=== PATIENT | male | born 1935 | race Caucasian/White ===

== ENCOUNTER 2018-06-17 09:34 | Outpatient (CLI) | payer MEDICARE, OTHER ==
[2018-06-17 12:56] LABS: ALBUMIN/GLOBULIN RATIO 1.5 (1.0-2.2); ALKALINE PHOSPHATASE 64 IU/L (42-121); ALT ALANINE AMINOTRANSFERASE 19 IU/L (10-60); AST ASPARTATE AMINOTRANSFERASE 19 IU/L (10-42); BILIRUBIN,TOTAL 0.5 mg/dL (0.2-1.0); BUN - BLOOD UREA NITROGEN 15 mg/dL (6-20); CALCIUM 9.4 mg/dL (8.5-10.3); CARBON DIOXIDE - CO2 28 mmol/L (21-32); CHLORIDE 103 mmol/L (101-111); CHOL/HDL RATIO 2.4 (<5.0); CHOLESTEROL 155 mg/dL; CREATININE 0.9 mg/dL (0.6-1.2); GFR - MDRD 80 (>89); GLUCOSE 119 mg/dL (70-100); HDL CHOLESTEROL 64 mg/dL; LDL CHOLESTEROL,CALCULATED 81 mg/dL; LDL/HDL RATIO 1.3 (<3.6); SODIUM 141 mmol/L (135-145); TOTAL PROTEIN 6.6 g/dL (6.7-8.2); VLDL CHOLESTEROL 10 mg/dL
[2018-06-17 13:07] LABS: BASOPHILS % (AUTO) 0.5 %; EOSINOPHILS # (AUTO) 0.3 10^3/uL (0.0-0.7); EOSINOPHILS % (AUTO) 7.5 %; LYMPHOCYTES # (AUTO) 1.3 10^3/uL (1.5-3.5); LYMPHOCYTES % (AUTO) 31.3 %; MEAN CORPUSCULAR HEMOGLOBIN 33.4 pg (27.0-31.0); MEAN CORPUSCULAR HGB CONC 34.5 g/dL (32.0-36.0); MEAN CORPUSCULAR VOLUME 96.7 fL (80.0-94.0); MEAN PLATELET VOLUME 7.7 fL (7.4-11.4); MONOCYTES # (AUTO) 0.2 10^3/uL (0.0-1.0); MONOCYTES % (AUTO) 5.7 %; NEUTROPHILS # (AUTO) 2.3 10^3/uL (1.5-6.6); PLT - PLATELET COUNT 188 10^3/uL (130-450); RED BLOOD COUNT 3.89 10^6/uL (4.70-6.10); RED CELL DISTRIBUTION WIDTH 14.9 % (12.0-15.0); WHITE BLOOD COUNT 4.2 x10^3/uL (4.8-10.8)
[2018-06-17 13:09] LABS: HB2 TOTAL 13.5 g/dL; HEMOGLOBIN A1C 0.57 g/dL
== END 2018-06-17 09:35 ==
LOC: LAB.WCP 09:34
PROVIDERS: ATTEND Physician Assistant Medical
DX: E78.5 Hyperlipidemia, unspecified (principal); R73.9 Hyperglycemia, unspecified; N40.1 Benign prostatic hyperplasia with lower urinary tract symptoms; J30.9 Allergic rhinitis, unspecified
CPT/HCPCS: 36415; 80053; 80061; 83036; 83721; 84153; 85025

== ENCOUNTER 2018-07-07 16:54 | Outpatient (CLI) | payer MEDICARE, OTHER ==
--- NOTE | 2018-07-08 09:41 | Ultrasound Report ---
Reason: CAROTID ARTERY STENOSIS Procedure Date: 07/07/2018 Accession Number: [id number] / [id number] Procedure: US - Carotid Doppler Complete CPT Code: FULL RESULT: EXAM: BILATERAL CAROTID AND VERTEBRAL ARTERY DUPLEX DOPPLER ULTRASOUND: EXAM DATE: 07/07/2018 05:01 PM CLINICAL HISTORY: Carotid artery stenosis. COMPARISON: None. TECHNIQUE: Grayscale imaging, color Doppler, and duplex spectral Doppler were used to evaluate the carotid and vertebral arteries bilaterally. Static images were obtained. FINDINGS: There is no significant elevation of the velocities or ratios. Mild atherosclerotic plaque formation is seen involving bilateral carotid bulbs. Normal antegrade flow is present in bilateral vertebral arteries. VELOCITIES (cm/sec): RIGHT CCA mid: PSV 73.94 cm/sec CCA dist: PSV 81.22 cm/sec ICA prox: PSV 61.06 cm/sec, EDV 17.36 cm/sec ICA mid: PSV 77.86 cm/sec, EDV 24.65 cm/sec ICA dist: PSV 64.16 cm/sec, EDV 22.97 cm/sec ECA: PSV 78.42 cm/sec Vert: PSV 40.70 cm/sec ICA/CCA: 0.96 LEFT CCA mid: PSV 75.98 cm/sec CCA dist: PSV 64.17 cm/sec ICA prox: PSV 53.39 cm/sec, EDV 13.35 cm/sec ICA mid: PSV 56.47 cm/sec, EDV 16.94 cm/sec ICA dist: PSV 65.71 cm/sec, EDV 16.94 cm/sec ECA: PSV 78.55 cm/sec Vert: PSV 27.17 cm/sec ICA/CCA: 1.02 ICA diameter stenosis: Right: <50% by velocity and <70% by NASCET criteria. Left: <50% by velocity and <70% by NASCET criteria. IMPRESSION: 1. Mild bilateral carotid artery plaquing. 2. In the right carotid artery there are no elevated carotid artery velocities to suggest hemodynamically significant stenosis. 3. In the left carotid artery there are no elevated carotid artery velocities to suggest hemodynamically significant stenosis. 4. Normal antegrade flow is present in bilateral vertebral arteries. General Recommendations: Stenosis =50% ICA - Follow-up ultrasound 6-12 months Stenosis <50% ICA - High Risk Patient with plaque - Follow-up ultrasound 1-2 years Normal Study but High Risk Patient - Follow-up ultrasound 3-5 years Management recommendations and diagnostic criteria are based on current IAC endorsed standards in Carotid Artery Stenosis: Grayscale and Doppler Ultrasound Diagnosis. Validated velocity measurements with angiographic measurements and velocity criteria are extrapolated from diameter data as defined by the Society of Radiologists in Ultrasound Consensus Conference Radiology 2003; 229;340-346. RADIA
== END 2018-07-07 16:55 | disposition home or self-care (01) ==
LOC: DI 16:54
PROVIDERS: ATTEND Physician Assistant Medical
DX: I65.29 Occlusion and stenosis of unspecified carotid artery (principal)
CPT/HCPCS: 93880

== ENCOUNTER 2018-07-21 10:19 | Outpatient (CLI) | payer MEDICARE, OTHER ==
[2018-07-21 12:53] LABS: BASOPHILS % (AUTO) 0.6 %; EOSINOPHILS # (AUTO) 0.3 10^3/uL (0.0-0.7); EOSINOPHILS % (AUTO) 8.2 %; LYMPHOCYTES # (AUTO) 1.4 10^3/uL (1.5-3.5); LYMPHOCYTES % (AUTO) 35.6 %; MEAN CORPUSCULAR HEMOGLOBIN 33.4 pg (27.0-31.0); MEAN CORPUSCULAR HGB CONC 34.2 g/dL (32.0-36.0); MEAN CORPUSCULAR VOLUME 97.5 fL (80.0-94.0); MEAN PLATELET VOLUME 7.7 fL (7.4-11.4); MONOCYTES # (AUTO) 0.2 10^3/uL (0.0-1.0); MONOCYTES % (AUTO) 5.8 %; NEUTROPHILS % (AUTO) 49.8 %; PLT - PLATELET COUNT 197 10^3/uL (130-450); RED BLOOD COUNT 4.18 10^6/uL (4.70-6.10); RED CELL DISTRIBUTION WIDTH 15.3 % (12.0-15.0)
[2018-07-21 13:39] LABS: FERRITIN 143.8 ng/mL (23.9-336.2)
[2018-07-21 13:42] LABS: FOLATE 13.51 ng/mL (5.90 - >24.8)
[2018-07-21 14:27] LABS: % IRON SATURATION 35 % (20-50); IRON 93 ug/dL (45-182); TOTAL IRON BINDING CAPACITY 266 ug/dL (250-450); TRANSFERRIN 190 mg/dL (180-329)
== END 2018-07-21 10:20 | disposition home or self-care (01) ==
LOC: LAB.WCP 10:19
PROVIDERS: ATTEND Physician Assistant Medical
DX: D64.9 Anemia, unspecified (principal)
CPT/HCPCS: 36415; 82607; 82728; 82746; 83540; 84466; 85025

== ENCOUNTER 2018-09-27 08:00 | Outpatient (CLI) | payer MEDICARE, OTHER ==
[2018-09-27 19:18] LABS: BASOPHILS % (AUTO) 0.5 %; EOSINOPHILS # (AUTO) 0.4 10^3/uL (0.0-0.7); EOSINOPHILS % (AUTO) 7.8 %; HGB - HEMOGLOBIN 13.2 g/dL (14.0-18.0); LYMPHOCYTES # (AUTO) 1.5 10^3/uL (1.5-3.5); LYMPHOCYTES % (AUTO) 31.8 %; MEAN CORPUSCULAR HEMOGLOBIN 32.8 pg (27.0-31.0); MEAN CORPUSCULAR VOLUME 99.4 fL (80.0-94.0); MEAN PLATELET VOLUME 7.7 fL (7.4-11.4); MONOCYTES # (AUTO) 0.3 10^3/uL (0.0-1.0); MONOCYTES % (AUTO) 6.6 %; NEUTROPHILS # (AUTO) 2.5 10^3/uL (1.5-6.6); NEUTROPHILS % (AUTO) 53.3 %; PLT - PLATELET COUNT 182 10^3/uL (130-450); RED BLOOD COUNT 4.01 10^6/uL (4.70-6.10); WHITE BLOOD COUNT 4.7 x10^3/uL (4.8-10.8)
== END 2018-09-27 23:59 | disposition home or self-care (01) ==
LOC: LAB.WCP 08:00
PROVIDERS: ATTEND Physician Assistant Medical
DX: D51.9 Vitamin B12 deficiency anemia, unspecified (principal)
CPT/HCPCS: 36415; 82607; 85025

== ENCOUNTER 2018-10-21 22:34 | Outpatient (CLI) | payer MEDICARE, OTHER ==
--- NOTE | 2018-10-22 00:38 | Ultrasound Report ---
Reason: TESTICULAR PAIN,LEFT Procedure Date: 10/21/2018 Accession Number: [id number] / [id number] Procedure: US - Testicle w/Doppler CPT Code: FULL RESULT: EXAM: SCROTAL ULTRASOUND EXAM DATE: 10/21/2018 11:59 PM. CLINICAL HISTORY: Testicular pain, left. COMPARISON: None. TECHNIQUE: Real-time scanning was performed with static images obtained. Color-flow images were utilized. FINDINGS: Right: Testis: 3.3 x 3.1 x 2.3 cm. Normal size and echotexture. No mass, calcification, or abnormal blood flow. Epididymis: Normal size and echotexture. No solid-appearing mass or abnormal blood flow. Hydrocele: None. Varicocele: None. Left: Testis: 3.3 x 2.7 x 3.7 cm. Quite hyperemic and heterogeneous. There is a small region posteriorly with avascularity which could be a very small early abscess. Doubt testicular mass. Epididymis: Normal size and echotexture. No solid-appearing mass or abnormal blood flow. Hydrocele: Moderate reactive. Varicocele: None. Other: None. IMPRESSION: Hyperemic and heterogeneous left testicle, concerning for orchitis. There is a small region posteriorly which could be a very early intratesticular abscess. No drainable collection seen. Moderate reactive hydrocele. RADIA The above findings were discussed with Hazel Short by Dr. Felipe Armas at 12:40 AM on 10/22/2018.
== END 2018-10-21 22:35 | disposition home or self-care (01) ==
LOC: DI 22:34
PROVIDERS: ATTEND Physician Assistant Medical
DX: N50.812 Left testicular pain (principal); N43.3 Hydrocele, unspecified
CPT/HCPCS: 76870; 93975

== ENCOUNTER 2018-10-28 17:33 | Outpatient (CLI) | payer MEDICARE, OTHER ==
--- NOTE | 2018-10-28 20:15 | Ultrasound Report ---
Reason: TESTICULAR PAIN Procedure Date: 10/28/2018 Accession Number: [id number] / [id number] Procedure: US - Testicle w/Doppler CPT Code: FULL RESULT: EXAM: SCROTAL ULTRASOUND EXAM DATE: 10/28/2018 06:30 PM. CLINICAL HISTORY: TESTICULAR PAIN. Follow-up orchitis. 5 days of antibiotics with increased swelling. COMPARISON: TESTICLE W/DOPPLER 10/21/2018 11:31 PM. TECHNIQUE: Real-time scanning was performed with static images obtained. Color-flow images were utilized. FINDINGS: Right: Testis: 3.7 x 2.3 x 2.4 cm. Blood flow appears within normal limits. Mildly heterogeneous echotexture. Mild microlithiasis. Epididymis: 1.2 x 1.1 x 1.1 cm. Normal size and echotexture. No mass or abnormal blood flow. Hydrocele: Small hydrocele. Varicocele: None. Left: Testis: 4.3 x 3.4 x 3.3 cm. Persistent acute left orchitis. Very heterogeneous enlarged hypervascular left testicle is seen diffusely. The heterogeneity of the left testicle appears mild to worse compared to the prior. The amount of hypervascularity appears similar to the prior. There is a moderate left hydrocele which appears simple and this was present on the prior. Epididymis: 1.1 x 0.9 x 1.1 cm. Multiple tiny epididymal cysts Hydrocele: Moderate left hydrocele. Varicocele: Prominent left spermatic cord, varicocele could be present. IMPRESSION: 1. Persistent acute left orchitis. Very heterogeneous enlarged hypervascular left testicle is seen diffusely. The heterogeneity of the left testicle appears mild to worse compared to the prior. The amount of hypervascularity appears similar to the prior. Follow-up of this heterogeneous left testicle is recommended to ensure resolution and exclude a mass. There is a moderate left hydrocele which appears simple and this was present on the prior. 2. Small right hydrocele. Mild right testicle microlithiasis. 3. See above. RADIA The call report notification system was initiated by Dr. Mirella Oneil at 07:28 PM on 10/28/2018. We were unable to reach anyone at the time this report was signed. ADDENDUM: 10/28/18 20:43 Dr. Short was informed of these findings on 10/28/2018 at 20:43 hrs.
== END 2018-10-28 17:34 | disposition home or self-care (01) ==
LOC: DI 17:33
PROVIDERS: ATTEND Physician Assistant Medical
DX: N45.2 Orchitis (principal); N43.3 Hydrocele, unspecified; N50.89 Other specified disorders of the male genital organs
CPT/HCPCS: 76870; 93975

== ENCOUNTER 2019-07-01 13:26 | Outpatient (CLI) | payer MEDICARE, OTHER ==
--- NOTE | 2019-07-03 08:44 | Ultrasound Report ---
Reason: CAROTID ARTERY STENOSIS Procedure Date: 07/01/2019 Accession Number: [id number] / [id number] Procedure: US - Carotid Doppler Complete CPT Code: FULL RESULT: EXAM: BILATERAL CAROTID AND VERTEBRAL ARTERY DUPLEX DOPPLER ULTRASOUND: EXAM DATE: 07/01/2019 01:48 PM CLINICAL HISTORY: Carotid artery stenosis. COMPARISON: CAROTID DOPPLER COMPLETE 07/07/2018 5:01 PM. TECHNIQUE: Grayscale imaging, color Doppler, and duplex spectral Doppler were used to evaluate the carotid and vertebral arteries bilaterally. Static images were obtained. FINDINGS: Mild carotid bulb plaquing bilaterally, similar to prior. Normal antegrade flow is present in bilateral vertebral arteries. VELOCITIES (cm/sec): Right CCA mid: PSV 82 cm/sec CCA dist: PSV 73 cm/sec ICA prox: PSV 53 cm/sec, EDV 11 cm/sec ICA mid: PSV 76 cm/sec, EDV 18 cm/sec ICA dist: PSV 66 cm/sec, EDV 20 cm/sec ECA: PSV 80 cm/sec Vert: PSV 45 cm/sec ICA/CCA: 0.92 Left CCA mid: PSV 68 cm/sec CCA dist: PSV 62 cm/sec ICA prox: PSV 48 cm/sec, EDV 12 cm/sec ICA mid: PSV 58 cm/sec, EDV 16 cm/sec ICA dist: PSV 56 cm/sec, EDV 14 cm/sec ECA: PSV 74 cm/sec Vert: PSV 49 cm/sec ICA/CCA: 0.85 ICA diameter stenosis: Right: <50% by velocity and <70% by NASCET criteria. Left: <50% by velocity and <70% by NASCET criteria. IMPRESSION: 1. Mild bilateral carotid artery plaquing. 2. In the right carotid artery there are no elevated carotid artery velocities to suggest hemodynamically significant stenosis. 3. In the left carotid artery there are no elevated carotid artery velocities to suggest hemodynamically significant stenosis. 4. Normal antegrade flow is present in bilateral vertebral arteries. General Recommendations: Stenosis =50% ICA - Follow-up ultrasound 6-12 months Stenosis <50% ICA - High Risk Patient with plaque - Follow-up ultrasound 1-2 years Normal Study but High Risk Patient - Follow-up ultrasound 3-5 years Management recommendations and diagnostic criteria are based on current IAC endorsed standards in Carotid Artery Stenosis: Grayscale and Doppler Ultrasound Diagnosis. Validated velocity measurements with angiographic measurements and velocity criteria are extrapolated from diameter data as defined by the Society of Radiologists in Ultrasound Consensus Conference Radiology 2003; 229;340-346. RADIA
== END 2019-07-01 13:27 | disposition home or self-care (01) ==
LOC: DI 13:26
PROVIDERS: ATTEND Physician Assistant Medical
DX: I65.29 Occlusion and stenosis of unspecified carotid artery (principal)
CPT/HCPCS: 93880

== ENCOUNTER 2019-07-07 04:37 | Emergency (ER) | payer MEDICARE, OTHER ==
[2019-07-07] MEDS ORDERED: KETOROLAC 30 MG/ML VIAL IVP STA (05:01)
[2019-07-07] MEDS ORDERED: SODIUM CHLORIDE 0.9% 1,000 ML IV ONE (05:01)
[2019-07-07] MEDS ORDERED: ONDANSETRON 4 MG/2 ML VIAL IVP STA (05:01)
[2019-07-07 05:02] LABS: BILIRUBIN,URINE NEGATIVE (NEGATIVE); GLUCOSE, URINE (UA) NEGATIVE (NEGATIVE); KETONES,URINE (UA) NEGATIVE (NEGATIVE); LEUKOCYTE ESTERASE, URINE NEGATIVE (NEGATIVE); NITRITE,URINE NEGATIVE (NEGATIVE); OCCULT BLOOD,URINE TRACE-LYSE (NEGATIVE); PROTEIN,URINE 30 mg/dL (NEGATIVE); UROBILINOGEN,URINE 0.2 (NORMAL) E.U./dL (NORMAL)
[2019-07-07 05:03] LABS: CLARITY,URINE CLEAR (CLEAR)
--- NOTE | 2019-07-07 05:04 | ED Physician Documentation ---
History of Present Illness - Stated complaint Stated Complaint: BK PX/ N/V - Chief complaint Chief Complaint: Back Pain - History obtained from History obtained from: Patient, Family - History of Present Illness Timing: Today - Additonal information Additional information: Previously well 83-year-old male has developed acute right flank pain that has awakened him from sleep and he is not able to control the pain he had some vomiting. He is able to move about without increasing the pain. He describes the pain is coming from the right flank down around the abdomen to the front. He has not had this pain previously. Has not been sick recently and he acknowledges general good health only taking medication for his prostate and having had both hips replaced minimally invasive. Review of Systems Constitutional: denies: Fever Eyes: denies: Decreased vision Nose: denies: Congestion Throat: denies: Sore throat Cardiac: denies: Chest pain / pressure Respiratory: denies: Dyspnea, Cough GI: reports: Abdominal Pain, Nausea, Vomiting : denies: Dysuria, Frequency Skin: denies: Rash Musculoskeletal: reports: Back pain. denies: Neck pain, Extremity pain Neurologic: denies: Generalized weakness, Focal weakness, Numbness PD PAST MEDICAL HISTORY - Past Medical History Past Medical History: Yes Cardiovascular: High cholesterol Respiratory: None Neuro: None Endocrine/Autoimmune: None GI: Diverticulitis : None HEENT: None Psych: None Musculoskeletal: Osteoarthritis Derm: None - Past Surgical History Past Surgical History: Yes General: Colonoscopy, EGD Ortho: Hip replacement HEENT: Cataracts, Tonsil/Adenoidectomy - Present Medications Home Medications: Ambulatory Orders Medication Instructions Recorded Confirmed Aspirin Chewable [St Rayray 81 mg PO DAILY 11/01/13 12/02/15 Aspirin] Simvastatin [Zocor] 10 mg PO HS 11/01/13 11/01/13 Ciprofloxacin HCl [Cipro] 500 mg PO BID 14 Days tablet 02/24/15 Metronidazole [Flagyl] 500 mg PO BID 14 Days tablet 02/24/15 oxyCODONE/ACET 5/325 [Percocet 5 1 - 2 each PO Q6H PRN #20 tablet 12/02/15 mg/325 mg] Hydrocodone/Acetaminophen 1 - 2 each PO Q6H PRN #14 tablet 07/07/19 [Hydrocodon-Acetaminophen 5-325] - Allergies Allergies/Adverse Reactions: Allergies Allergy/AdvReac Type Severity Reaction Status Date / Time No Known Drug Allergies Allergy Verified 07/07/19 04:48 - Social History Does the pt smoke?: No Smoking Status: Never smoker Does the pt drink ETOH?: Yes Does the pt have substance abuse?: No - Immunizations Immunizations are current?: Yes - POLST Patient has POLST: No PD ED PE NORMAL - Vitals Vital signs reviewed: Yes (Hypertensive mild) - General General: Alert and oriented X 3, No acute distress, Well developed/nourished - HEENT HEENT: Atraumatic, PERRL, EOMI - Neck Neck: Supple, no meningeal sign - Cardiac Cardiac: RRR, No murmur - Respiratory Respiratory: No respiratory distress, Clear bilaterally - Abdomen Abdomen: Normal bowel sounds, Soft, Non tender, Non distended, No organomegaly - Back Back: No CVA TTP, No spinal TTP - Derm Derm: Normal color, Warm and dry, No rash - Extremities Extremities: No deformity, No edema, No calf tenderness / cord - Neuro Neuro: Alert and oriented X 3, implementation specialist payroll 2-12 intact, No motor deficit, No sensory deficit, Normal speech Eye Opening: Spontaneous Motor: Obeys Commands Verbal: Oriented GCS Score: 15 - Psych Psych: Normal mood, Normal affect Results - Vitals Vitals: Vital Signs - 24 hr 07/07/19 07/07/19 07/07/19 04:46 05:30 05:41 Temperature 36.7 C Heart Rate 88 90 91 Respiratory 16 16 16 Rate Blood Pressure 136/85 H 117/66 O2 Saturation 98 97 97 Oxygen O2 Source Room air - Labs Labs: Laboratory Tests 07/07/19 07/07/19 07/07/19 04:40 05:00 05:00 WBC 6.7 RBC 3.68 L Hgb 12.0 L Hct 36.9 L MCV 100.3 H MCH 32.6 H MCHC 32.5 RDW 14.5 Plt Count 179 MPV 9.2 Neut # (Auto) 5.3 Lymph # (Auto) 0.9 L [place] # (Auto) 0.3 Eos # (Auto) 0.1 Baso # (Auto) 0.0 Absolute Nucleated RBC 0.00 Nucleated RBC % 0.0 Sodium 141 Potassium 4.3 Chloride 104 Carbon Dioxide 26 Anion Gap 11.0 BUN 21 H Creatinine 1.7 H Estimated GFR (MDRD) 38 L Glucose 166 H Calcium 9.5 Total Bilirubin 0.5 AST 19 ALT 17 Alkaline Phosphatase 93 Total Protein 7.0 Albumin 4.1 Globulin 2.9 Albumin/Globulin Ratio 1.4 Lipase 43 Urine Color YELLOW Urine Clarity CLEAR Urine pH 6.0 Ur Specific [place] >=1.030 H Urine Protein 30 H Urine Glucose (UA) NEGATIVE Urine Ketones NEGATIVE Urine Occult Blood TRACE-LYSE Urine Nitrite NEGATIVE Urine Bilirubin NEGATIVE Urine Urobilinogen 0.2 (NORMAL) Ur Leukocyte Esterase NEGATIVE Urine RBC 0-5 Urine WBC 0-3 Ur Squamous Epith Cells RARE Squamous Urine Bacteria None Seen Urine Mucus Few Strands Ur Microscopic Review INDICATED Urine Culture Comments NOT INDICATED - Rads (name of study) CT abd/pel without Radiology: Prelim report reviewed (Impression: There appears to be obstructive uropathy on the right suspicious for distal right ureteral stone, but there is a large amount of streak artifact in the pelvis from bilateral hip prostheses and the presumed stone is difficult to identify. 2. 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 Some additional smaller rib lesions are suspected as well.), EMP read indepedently, See rad report Procedures - Bedside sono Bedside sono by EMP: With these bedside ultrasound the right kidney is imaged it is sonographically nontender there is evidence of hydronephrosis. PD MEDICAL DECISION MAKING - ED course Complexity details: reviewed old records, reviewed results, re-evaluated patient, considered differential, d/w patient, d/w family ED course: 83-year-old male presents to the emergency department with acute right flank pain and has hydronephrosis on examination with bedside ultrasound. He is administered a liter of saline 30 mg of Toradol and [address] scan o f the abdomen pelvis is undertaken.The CT scan does show an obstructive uropathy on the right side and the patient does get good relief of his pain with use of the Toradol. There are incidental findings on the CT scan concerning for metastatic disease in the left ninth rib. The patient has no pain associated with area this area and he does have a prior history of displacement of the rib in this area about 10 years ago. He has had a PSA that was elevated several years ago and has gone back to normal. He will need some follow-up with this with his primary. Departure - Departure Disposition: 01 Home, Self Care Clinical Impression: Ureterolithiasis Condition: Stable Instructions: ED Stone Renal W Colic Follow-Up: Hazel Short PA-C [Primary Care Provider] - Prescriptions: Hydrocodone/Acetaminophen [Hydrocodon-Acetaminophen 5-325] 1 - 2 each PO Q6H PRN #14 tablet PRN Reason: pain Comments: Today there appears to be a stone just about ready to pass into the bladder on the right side. There are 2 smaller stones in the left kidney. These will pass at some time. There is an incidental finding of a problem with the left ninth rib. This is concerning for metastatic disease and a follow-up with your primary care doctor is imperative.
[2019-07-07 05:08] LABS: BACTERIA,URINE None Seen /HPF (None Seen); MUCUS,URINE Few Strands; RBC,URINE 0-5 /HPF (0-5); SQUAMOUS EPITHELIAL CELL,UR RARE Squamous (<= Few)
[2019-07-07 05:10] LABS: BASOPHILS % (AUTO) 0.4 %; EOSINOPHILS # (AUTO) 0.1 10^3/uL (0.0-0.7); EOSINOPHILS % (AUTO) 2.1 %; LYMPHOCYTES # (AUTO) 0.9 10^3/uL (1.5-3.5); LYMPHOCYTES % (AUTO) 13.2 %; MEAN CORPUSCULAR HEMOGLOBIN 32.6 pg (27.0-31.0); MEAN CORPUSCULAR HGB CONC 32.5 g/dL (32.0-36.0); MEAN CORPUSCULAR VOLUME 100.3 fL (80.0-94.0); MEAN PLATELET VOLUME 9.2 fL (7.4-11.4); MONOCYTES # (AUTO) 0.3 10^3/uL (0.0-1.0); MONOCYTES % (AUTO) 5.1 %; NEUTROPHILS # (AUTO) 5.3 10^3/uL (1.5-6.6); NEUTROPHILS % (AUTO) 78.8 %; PLT - PLATELET COUNT 179 10^3/uL (130-450); RED BLOOD COUNT 3.68 10^6/uL (4.70-6.10); RED CELL DISTRIBUTION WIDTH 14.5 % (12.0-15.0); WHITE BLOOD COUNT 6.7 x10^3/uL (4.8-10.8)
[2019-07-07 05:27] LABS: ALBUMIN 4.1 g/dL (3.2-5.5); ALBUMIN/GLOBULIN RATIO 1.4 (1.0-2.2); BILIRUBIN,TOTAL 0.5 mg/dL (0.2-1.0); CALCIUM 9.5 mg/dL (8.5-10.3); CREATININE 1.7 mg/dL (0.6-1.2)
--- NOTE | 2019-07-07 05:43 | CT Report ---
Reason: R flank pain Procedure Date: 07/07/2019 Accession Number: [id number] / [id number] Procedure: CT - Abdomen/Pelvis WO CPT Code: FULL RESULT: EXAM: CT ABDOMEN AND PELVIS (CT KUB) EXAM DATE: 07/07/2019 05:26 AM. CLINICAL HISTORY: R flank pain. COMPARISONS: None. TECHNIQUE: Routine axial helical CT imaging was performed through the abdomen and pelvis without IV contrast. Reconstructions: Coronal and sagittal. In accordance with CT protocol optimization, one or more of the following dose reduction techniques were utilized for this exam: automated exposure control, adjustment of mA and/or KV based on patient size, or use of iterative reconstructive technique. FINDINGS: Lung Bases: Unremarkable. Right Kidney/Ureter: No stones are seen in the kidney. There is mild hydronephrosis and hydroureter with perinephric stranding. There is a large amount of streak artifact in the pelvis. Distal ureteral stone is suspected but difficult to identify with certainty because of artifact. Left Kidney/Ureter: No stones, hydronephrosis, or hydroureter. No perinephric fat stranding. Other Solid Organs: Noncontrast images of the solid organs are grossly unremarkable. Gallbladder/Bile Ducts: Unremarkable. Peritoneal Cavity: No bowel obstruction seen. No free air or free fluid. Small umbilical hernia containing fat. Colonic diverticula. No obvious diverticulitis. No lymphadenopathy seen. Pelvic Organs: Pelvic organs are poorly seen due to streak artifact. Vasculature: Moderate atherosclerosis. No aortic aneurysm. Other: Osteopenia. Bilateral hip prostheses. Degenerative changes in the spine. Expansile lytic lesion of the left ninth rib with extraosseous extension, measuring approximately 4.3 x 4.9 cm, series 3 image 45. Additional smaller rib lesions are suspected. IMPRESSION: 1. There appears to be obstructive uropathy on the right suspicious for distal right ureteral stone, but there is a large amount of streak artifact in the pelvis from bilateral hip prostheses and the presumed stone is difficult to identify. 2. Expansile lytic 4.3 x 4.9 cm lesion of the left ninth rib suspicious for metastatic disease. Some additional smaller rib lesions are suspected as well. RADIA
[2019-07-07 06:22] VITALS: BP 127/61
== END 2019-07-07 06:37 | disposition home or self-care (01) ==
LOC: ED 04:37
DX: N13.2 Hydronephrosis with renal and ureteral calculous obstruction (principal); M89.9 Disorder of bone, unspecified; Z96.643 Presence of artificial hip joint, bilateral; Z79.82 Long term (current) use of aspirin
CPT/HCPCS: 36415; 74176; 80053; 81001; 81003; 83690; 85025; 87086; 96361; 96374; 99284

== ENCOUNTER 2019-07-11 09:34 | Outpatient (CLI) | payer MEDICARE, OTHER ==
[2019-07-11 12:46] LABS: ALBUMIN 3.7 g/dL (3.2-5.5); ALBUMIN/GLOBULIN RATIO 1.2 (1.0-2.2); ALKALINE PHOSPHATASE 64 IU/L (42-121); ALT ALANINE AMINOTRANSFERASE 12 IU/L (10-60); AST ASPARTATE AMINOTRANSFERASE 12 IU/L (10-42); BUN - BLOOD UREA NITROGEN 24 mg/dL (6-20); CALCIUM 9.5 mg/dL (8.5-10.3); CARBON DIOXIDE - CO2 27 mmol/L (21-32); CHLORIDE 104 mmol/L (101-111); CHOLESTEROL 141 mg/dL; CREATININE 2.3 mg/dL (0.6-1.2); GFR - MDRD 27 (>89); GLUCOSE 109 mg/dL (70-100); HDL CHOLESTEROL 72 mg/dL; LDL CHOLESTEROL,CALCULATED 59 mg/dL; LDL/HDL RATIO 0.8 (<3.6); SODIUM 139 mmol/L (135-145); TOTAL PROTEIN 6.7 g/dL (6.7-8.2); VLDL CHOLESTEROL 10 mg/dL
== END 2019-07-11 23:59 | disposition home or self-care (01) ==
LOC: LAB.WCP 09:34
PROVIDERS: ATTEND Physician Assistant Medical
DX: E78.5 Hyperlipidemia, unspecified (principal); D51.9 Vitamin B12 deficiency anemia, unspecified; N40.1 Benign prostatic hyperplasia with lower urinary tract symptoms; N13.8 Other obstructive and reflux uropathy
CPT/HCPCS: 36415; 80053; 80061; 82607; 83721; 84153

== ENCOUNTER 2019-07-15 08:31 | Outpatient (CLI) | payer MEDICARE, OTHER ==
--- NOTE | 2019-07-15 23:14 | CT Report ---
Reason: LYTIC BONE LESIONS ON XRAY Procedure Date: 07/15/2019 Accession Number: [id number] / [id number] Procedure: CT - CHEST WO CPT Code: Final Report FULL RESULT: EXAM: CT CHEST EXAM DATE: 07/15/2019 08:55 AM. CLINICAL HISTORY: LYTIC BONE LESIONS ON XRAY. COMPARISONS: ABDOMEN/PELVIS W/O 07/07/2019 5:21 AM. TECHNIQUE: Routine helical CT imaging was performed through the chest. IV contrast: None. Reconstructions: Coronal and sagittal. In accordance with CT protocol optimization, one or more of the following dose reduction techniques were utilized for this exam: automated exposure control, adjustment of mA and/or KV based on patient size, or use of iterative reconstructive technique. FINDINGS: Lungs/Pleura: 6 mm nodule in the periphery of the left lower lobe on image 73 of series 3. Lungs are otherwise clear. No effusions. Mediastinum: Calcifications in the aortic arch, but no aortic aneurysm. Coronary artery calcifications. Heart size is normal. No pericardial effusion, but tiny amount of pericardial fluid is extending into the superior pericardial recesses. No enlarged mediastinal lymph nodes. Bones: Scattered small lytic lesions involving multiple ribs, with most involved region being a expansile lytic mass taking up the left ninth rib laterally, including a soft tissue component extending into the left upper quadrant fat. Tiny lytic lucency in the right aspect of the manubrium, lytic lesion in the left transverse process of the T10 vertebra. Lytic regions in the T7 vertebral body, but could represent hemangioma. No acute vertebral body compression fractures are evident. Visualized Abdomen: Unremarkable. See CT abdomen pelvis report from 07/07/2019. Other: None. IMPRESSION: 1. Scattered lytic lesions throughout the rib cage, as well as left transverse process of T10 and the manubrium. More dominant lesion is the previously described expansile lytic lesion in the left ninth rib. Consider multiple myeloma or metastatic disease. 2. 6 mm nodule in the left lower lobe near the pleura. Likely represents an inflammatory or postinflammatory nodule. RADIA
== END 2019-07-15 08:32 | disposition home or self-care (01) ==
LOC: DI 08:31
PROVIDERS: ATTEND Physician Assistant Medical
DX: M89.9 Disorder of bone, unspecified (principal); R91.1 Solitary pulmonary nodule
CPT/HCPCS: 71250

== ENCOUNTER 2019-08-15 07:59 | Outpatient (CLI) | payer MEDICARE, OTHER | END 2019-08-15 08:00 | disposition home or self-care (01) | LOC: RT 07:59 | PROVIDERS: ATTEND Orthopaedic Surgery | DX: Z01.810 Encounter for preprocedural cardiovascular examination (principal); G56.03 Carpal tunnel syndrome, bilateral upper limbs | CPT/HCPCS: 93005 ==

== ENCOUNTER 2019-08-18 07:41 | Outpatient (CLI) | payer MEDICARE, OTHER | END 2019-08-18 07:42 | disposition home or self-care (01) | LOC: DI 07:41 | PROVIDERS: ATTEND Surgery | DX: R22.2 Localized swelling, mass and lump, trunk (principal) | CPT/HCPCS: 93306 ==

== ENCOUNTER 2019-12-01 13:00 | Outpatient (CLI) | payer MEDICARE, OTHER ==
[2019-12-01 13:21] LABS: CREATININE,URINE 192.5 mg/dL; PROTEIN/CREATININE RATIO,URINE 0.1 (<=0.2)
== END 2019-12-01 13:01 | disposition home or self-care (01) ==
LOC: LAB 13:00
PROVIDERS: ATTEND Internal Medicine Nephrology
DX: R80.9 Proteinuria, unspecified (principal)
CPT/HCPCS: 82570; 84156

== ENCOUNTER 2020-06-14 12:57 | Emergency (ER) | payer MEDICARE, OTHER ==
--- NOTE | 2020-06-14 13:12 | ED Physician Documentation ---
PD HPI UPPER EXT INJURY - Stated complaint Stated Complaint: BILAT HAND PX - Chief complaint Chief Complaint: Ext Problem - History obtained from History obtained from: Patient - History of Present Illness Location: Right, Left, Finger (thumb bases today. Has had redness/pain/swelling right 2nd toe for several days.) Type of injury: No: Fall, Twist Where injury occurred: Home Timing - onset: How many days ago (several days with toe redness and swelling. Seem in clinic [facility] by Dr. Wu, who thought side effect of his chemo, which can cause gout (and clots). Held the chemo started yesterday. Today with increased pain and also now with pain thumb bases and left great toe. Called [facility] and directed to ER.) Timing - details: Gradual onset Worsened by: Moving, Palpating Associated symptoms: Swelling, Discolored (of right toe.). No: Weakness, Numbness Contributing factors: No: Anticoagulated, Prior ortho surgery Review of Systems Constitutional: reports: Fatigue. denies: Fever, Chills, Myalgias Nose: denies: Rhinorrhea / runny nose, Congestion Throat: denies: Sore throat Respiratory: denies: Cough GI: denies: Abdominal Pain, Nausea, Vomiting, Diarrhea Neurologic: reports: Generalized weakness. denies: Focal weakness, Numbness, Headache PD PAST MEDICAL HISTORY - Past Medical History Cardiovascular: High cholesterol Respiratory: None Neuro: None Endocrine/Autoimmune: None GI: Diverticulitis : None HEENT: None Psych: None Musculoskeletal: Osteoarthritis Derm: None - Past Surgical History Past Surgical History: Yes General: Colonoscopy, EGD Ortho: Hip replacement HEENT: Cataracts, Tonsil/Adenoidectomy - Present Medications Home Medications: Ambulatory Orders Medication Instructions Recorded Confirmed Acyclovir 400 mg PO DAILY 10/26/19 06/13/20 Alfuzosin HCl [Uroxatral] 10 mg PO DAILY 10/26/19 06/13/20 Cyanocobalamin (Vitamin B-12) 1,000 mcg PO DAILY 10/26/19 06/13/20 [Vitamin B-12] Finasteride 5 mg PO DAILY 10/26/19 06/13/20 Fluticasone Propionate [Armonair 55 mcg INH DAILY 10/26/19 06/13/20 Respiclick] Latanoprost [Xalatan] 1 drops EACHEYE DAILY 10/26/19 06/13/20 Simvastatin 10 mg PO DAILY 10/26/19 06/13/20 Sulfamethoxazole/Trimethoprim 1 tab PO PRN PRN 10/26/19 06/13/20 [Sulfamethoxazole-Tmp Ds Tablet] Lenalidomide [Revlimid] 5 mg PO DAILY 06/13/20 06/13/20 Oxycodone HCl/Acetaminophen 1 each PO Q4H PRN #20 tablet 06/14/20 [Percocet 7.5-325 mg Tablet] predniSONE [Deltasone] 30 mg PO DAILY 5 Days #15 tab 06/14/20 - Allergies Allergies/Adverse Reactions: Allergies Allergy/AdvReac Type Severity Reaction Status Date / Time No Known Drug Allergies Allergy Verified 06/14/20 13:06 - Social History Does the pt smoke?: No Smoking Status: Never smoker Does the pt drink ETOH?: Yes Does the pt have substance abuse?: No - Immunizations Immunizations are current?: Yes - POLST Patient has POLST: No PD ED PE NORMAL - Vitals Vital signs reviewed: Yes - General General: Alert and oriented X 3, Well developed/nourished, Other (appears in pain. ) - Neck Neck: Supple, no meningeal sign, No adenopathy - Cardiac Cardiac: RRR, No murmur - Respiratory Respiratory: Clear bilaterally - Abdomen Abdomen: Soft, Non tender - Back Back: No CVA TTP - Derm Derm: Normal color, Warm and dry, No rash - Extremities Extremities: Other (right 2nd toe with redness and swelling dorsally at proximal phalanx and MTP. Tip of toe with normal color and cap refill. Faint redness distal dorsal foot. Right great toe tender without redness. Same for MCPs of both thumbs. Painful to touch and move. ) - Neuro Neuro: Alert and oriented X 3, No motor deficit, No sensory deficit, Normal speech Results - Vitals Vitals: Vital Signs - 24 hr 06/14/20 06/14/20 06/14/20 12:59 13:15 16:25 Temperature 37.1 C 37.1 C 37.1 C Heart Rate 81 81 79 Respiratory 18 18 18 Rate Blood Pressure 141/52 H 141/52 H 138/55 H O2 Saturation 95 95 96 Oxygen O2 Source Room air - Labs Labs: Laboratory Tests 06/14/20 06/14/20 13:59 13:59 ESR 45 H Uric Acid 5.1 C-Reactive Protein 11.2 H - Rads (name of study) toes xray Radiology: Prelim report reviewed (no degenerative changes to suggest osteo. ), See rad report PD MEDICAL DECISION MAKING - ED course Complexity details: reviewed results, considered differential (Does not look ischemic with good color at nailbed and tip. There is not any ulcerations nor break in dermis of toe. Local redness and swelling toe and some to just dorsum foot. No streaks. Seems likely c/w gout.), d/w tax credit le[employer] consultant (Dr. Wu, Oncology, who has held his chemo med (can cause gout/arthralgias) and concurs with short dosing steroids Prednisone 30 mg daily for 5 days until follow up next week. Lower suspicon for infection and so hold on abx unless extends area involved. ) Departure - Departure Disposition: 01 Home, Self Care Clinical Impression: Swelling of toe of right foot, Polyarthralgia Condition: Stable Record reviewed to determine appropriate education?: Yes Follow-Up: Hazel Short PA-C [Primary Care Provider] - ELI WU MD [Provider Admit Priv/Credential] - Prescriptions: predniSONE [Deltasone] 30 mg PO DAILY 5 Days #15 tab Oxycodone HCl/Acetaminophen [Percocet 7.5-325 mg Tablet] 1 each PO Q4H PRN #20 tablet PRN Reason: Pain Comments: Hold your chemo medicine as directed by Dr. Wu. Take prednisone 30 mg daily as directed by Dr. Wu as well. Use Tylenol 4 times a day as needed for pain or oxycodone if needed for worse pain. At this point we are presuming some gout or inflammatory arthritis related to your chemotherapy. See how much this improves with pain medicine and the steroids and being off the medicine. Regarding the toe, watch for increasing redness, drainage, red streaks which could be more suggestive of infection instead. Recheck if those develop. Otherwise follow-up with Dr. Wu over the next 3 to 5 days with the appointment as planned next week. Discharge Date/Time: 06/14/20 16:25
--- NOTE | 2020-06-14 14:28 | XRAY Report ---
PROCEDURE: Toe(s) RT INDICATIONS: right 2nd toe red and swelling for few days TECHNIQUE: 3 views of the second toe(s) acquired. COMPARISON: None. FINDINGS: Bones: No fractures or dislocations. No suspicious bony lesions. There is arthritic change at the second distal inner phalangeal joint and overlying soft tissue swelling. Soft tissues: No suspicious soft tissue densities. IMPRESSION: A fracture or foreign body is not seen. Swelling over the second digit is evident distally. Osteoarth ritis at the second distal inner phalangeal joint is present but no definite osteomyelitis. Please no te that plain film imaging may not detect early osteomyelitis. Reviewed by: Chay Sanderson MD on 06/14/2020 2:26 PM PDT Approved by: Chay Sanderson MD on 06/14/2020 2:26 PM PDT Station ID: [id number]
[2020-06-14 14:30] LABS: CRP - C-REACTIVE PROTEIN 11.2 mg/dL (0-1.0)
[2020-06-14 14:39] LABS: URIC ACID 5.1 mg/dL (2.6-7.2)
[2020-06-14] MEDS ORDERED: DEXAMETHASONE 10 MG/ML VIAL PO STA (15:12)
[2020-06-14] MEDS ORDERED: CHERRY SYRUP 10 ML UDC PO ONE (15:12)
[2020-06-14] MEDS ORDERED: oxyCODONE 5 MG TABLET PO STA (16:07)
[2020-06-14 16:27] VITALS: BP 138/55
== END 2020-06-14 16:25 | disposition home or self-care (01) ==
LOC: ED 12:57
DX: M25.542 Pain in joints of left hand (principal); M25.541 Pain in joints of right hand; M25.572 Pain in left ankle and joints of left foot; M19.071 Primary osteoarthritis, right ankle and foot; R53.1 Weakness; Z79.899 Other long term (current) drug therapy
CPT/HCPCS: 36415; 73660; 84550; 85651; 86140; 99284; A9270

== ENCOUNTER 2020-06-19 21:21 | Emergency (ER) | payer MEDICARE, OTHER ==
[2020-06-19 21:45] VITALS: BP 128/69
--- NOTE | 2020-06-19 21:51 | ED Physician Documentation ---
PD HPI SKIN - Stated complaint Stated Complaint: RT TOE SWOLLEN - Chief complaint Chief Complaint: Wound - History obtained from History obtained from: Patient - Additional information Additional information: 84-year-old male with multiple myeloma on chemotherapy presents with right foot second toe redness and swelling. Denies any history of osteomyelitis. Denies any history of diabetes. Denies any recent injuries.Patient reports he was seen by his primary care provider and was started on prednisone for his toe swelling. Review of Systems Constitutional: reports: Reviewed and negative Eyes: reports: Reviewed and negative Ears: reports: Reviewed and negative Nose: reports: Reviewed and negative Throat: reports: Reviewed and negative Cardiac: reports: Reviewed and negative Respiratory: reports: Reviewed and negative GI: reports: Reviewed and negative : reports: Reviewed and negative Skin: reports: Lesions, Other (Abscess on the right foot second toe) Musculoskeletal: reports: Reviewed and negative Neurologic: reports: Reviewed and negative Psychiatric: reports: Reviewed and negative Endocrine: reports: Reviewed and negative Immunocompromised: reports: Reviewed and negative PD PAST MEDICAL HISTORY - Past Medical History Cardiovascular: High cholesterol Respiratory: None Neuro: None Endocrine/Autoimmune: None GI: Diverticulitis : None HEENT: None Psych: None Musculoskeletal: Osteoarthritis Derm: None - Past Surgical History Past Surgical History: Yes General: Colonoscopy, EGD Ortho: Hip replacement HEENT: Cataracts, Tonsil/Adenoidectomy - Present Medications Home Medications: Ambulatory Orders Medication Instructions Recorded Confirmed Acyclovir 400 mg PO DAILY 10/26/19 06/13/20 Alfuzosin HCl [Uroxatral] 10 mg PO DAILY 10/26/19 06/13/20 Cyanocobalamin (Vitamin B-12) 1,000 mcg PO DAILY 10/26/19 06/13/20 [Vitamin B-12] Finasteride 5 mg PO DAILY 10/26/19 06/13/20 Fluticasone Propionate [Armonair 55 mcg INH DAILY 10/26/19 06/13/20 Respiclick] Latanoprost [Xalatan] 1 drops EACHEYE DAILY 10/26/19 06/13/20 Simvastatin 10 mg PO DAILY 10/26/19 06/13/20 Sulfamethoxazole/Trimethoprim 1 tab PO PRN PRN 10/26/19 06/13/20 [Sulfamethoxazole-Tmp Ds Tablet] Lenalidomide [Revlimid] 5 mg PO DAILY 06/13/20 06/13/20 Oxycodone HCl/Acetaminophen 1 each PO Q4H PRN #20 tablet 06/14/20 [Percocet 7.5-325 mg Tablet] predniSONE [Deltasone] 30 mg PO DAILY 5 Days #15 tab 06/14/20 Cephalexin [Keflex] 500 mg PO QID #28 capsule 06/19/20 - Allergies Allergies/Adverse Reactions: Allergies Allergy/AdvReac Type Severity Reaction Status Date / Time No Known Drug Allergies Allergy Verified 06/14/20 13:06 - Social History Does the pt smoke?: No Smoking Status: Never smoker Does the pt drink ETOH?: Yes Does the pt have substance abuse?: No - Immunizations Immunizations are current?: Yes - POLST Patient has POLST: No PD ED PE NORMAL - Vitals Vital signs reviewed: Yes - General General: Alert and oriented X 3, No acute distress - HEENT HEENT: PERRL - Neck Neck: Supple, no meningeal sign - Cardiac Cardiac: RRR, No murmur - Respiratory Respiratory: Clear bilaterally - Abdomen Abdomen: Normal bowel sounds, Soft, Non tender, Non distended - Derm Derm: Warm and dry, Other (3 x 3 cm abscess to the second toe of the right foot over the distal interphalangeal joint) - Extremities Extremities: Other (3 x 3 cm abscess to the right foot second toe involving the distal interphalangeal joint.) - Neuro Neuro: Alert and oriented X 3 - Psych Psych: Normal mood, Normal affect Results - Vitals Vitals: Vital Signs - 24 hr 06/19/20 21:40 Temperature 36.9 C Heart Rate 66 Respiratory 18 Rate Blood Pressure 128/69 O2 Saturation 98 Oxygen O2 Source Room air Procedures - Abscess I&D (location) Toe right Dorsal Preparation: Lidocaine 1%, Other (Digital block was used in the webspaces bilaterally using 1% lidocaine without epinephrine 1-1/2 cc was used in both webspaces.) Incision: Incised with scalpel, Purulent drainage, Loculations broken, Irrigated Other: Pt tolerated well, Dressing applied, Antibiotic prescribed PD MEDICAL DECISION MAKING - ED course ED course: 84-year-old male with a large abscess to the second toe of the right footIncision and drainage completed with large amount of purulent discharge x- rays reviewed by myself and radiology service show a subacute fracture with no signs of osteomyelitis. Patient will be started on doxycycline he will follow- up with his primary care provider and his oncologist today. Departure - Departure Disposition: 01 Home, Self Care Clinical Impression: Abscess of toe, right Toe fracture, right Qualifiers: Encounter type: initial encounter Toe: unspecified toe Fracture type: closed Fracture alignment: nondisplaced Qualified Code(s): S92.911A - Unspecified fracture of right toe(s), initial encounter for closed fracture Condition: Stable Instructions: ED Abscess IandD Follow-Up: Hazel Short PA-C [Primary Care Provider] - Tomorrow Prescriptions: Cephalexin [Keflex] 500 mg PO QID #28 capsule Comments: Take antibiotics as directed. Follow-up with your doctor tomorrow for a wound check. Apply Neosporin to your toes twice daily. Keep the toe protected with a dressing.Follow-up with your oncologist tomorrow as scheduled. Discharge Date/Time: 06/20/20 00:12
[2020-06-19] MEDS ORDERED: LIDOCAINE 1% 2 ML VIAL SUBQ STA (22:01)
[2020-06-19] MEDS ORDERED: cephALEXin 250 MG CAPSULE PO STA (23:44)
[2020-06-19] MEDS ORDERED: BACITRACIN ZINC OINT 1 PACKET TOP STA (23:47)
--- NOTE | 2020-06-20 08:10 | XRAY Report ---
PROCEDURE: Toe(s) RT INDICATIONS: toe swelling TECHNIQUE: 3 views of the right second toe(s) acquired. COMPARISON: None FINDINGS: Bones: Subacute appearing right first proximal and right second middle phalange fractures noted. Soft tissues: No suspicious soft tissue densities. Marked second digit soft tissue swelling is note d which could be due to trauma or infection. IMPRESSION: Right first proximal phalange and right second middle phalange fractures. Reviewed by: Lisandra Pak MD, PhD on 06/20/2020 8:09 AM PDT Approved by: Lisandra Pak MD, PhD on 06/20/2020 8:09 AM PDT Station ID: [id number]
== END 2020-06-20 00:12 | disposition home or self-care (01) ==
LOC: ED 21:21
DX: L02.611 Cutaneous abscess of right foot (principal); S92.911A Unspecified fracture of right toe(s), initial encounter for closed fracture; X58.XXXA Exposure to other specified factors, initial encounter
CPT/HCPCS: 10060; 73660; 99282; 99283; A9270

== ENCOUNTER 2020-06-21 07:00 | Outpatient (CLI) | payer MEDICARE, OTHER | END 2020-06-21 23:59 | disposition home or self-care (01) | LOC: LAB.R 07:00 | PROVIDERS: ATTEND Family Medicine | DX: L02.611 Cutaneous abscess of right foot (principal) | CPT/HCPCS: 87070; 87205 ==

== ENCOUNTER 2020-10-17 16:42 | Outpatient (CLI) | payer MEDICARE, OTHER ==
--- NOTE | 2020-10-18 10:52 | Ultrasound Report ---
PROCEDURE: Retroperitoneal INDICATIONS: HYDRONEPHROSIS, KIDNEY DISEASE, MULT MYELOMA TECHNIQUE: Real-time scanning was performed of the retroperitoneal organs, with image documentation. COMPARISON: Prior CT abdomen/pelvis 07/07/2019. FINDINGS: Kidneys: Kidneys are normal in size. Right kidney measures 9.9 cm long; left kidney measures 11.4 c m long. Right renal cortical thickness is 1.3 cm; left renal cortical thickness is 1.3 cm. No solid masses, hydronephrosis, or nephrolithiasis. Note is made of a lobulated margin of the renal cortex b ilaterally, normal variant, and scattered echogenic foci in the area of the renal sinus fat-medullary junction consistent with vascular calcifications. No urinary tract obstruction is suspected. Pancreas: Visualized portions of the pancreas are sonographically normal. Aorta: Visualized aorta is normal in caliber at 3 cm or less. Iliac arteries: Proximal common iliac arteries are normal in caliber at 2.5 cm or less. IVC: Intrahepatic inferior vena cava is patent. Miscellaneous: No free abdominal fluid. Note is made of a prevoid bladder volume of 77.3 cc, and a p ostvoid residual of 6.5 cc. IMPRESSION: No hydronephrosis is currently present. Several scattered vascular calcifications are noted at the re nal sinus. No definite collecting system calculus. Normal bladder function. Reviewed by: Chay Sanderson MD on 10/18/2020 10:51 AM RUST Approved by: Chay Sanderson MD on 10/18/2020 10:51 AM PST Station ID: [id number]
== END 2020-10-17 16:43 | disposition home or self-care (01) ==
LOC: DI 16:42
PROVIDERS: ATTEND Internal Medicine
DX: N18.9 Chronic kidney disease, unspecified (principal); C90.01 Multiple myeloma in remission

== ENCOUNTER 2021-02-26 08:09 | Outpatient (CLI) | payer MEDICARE, OTHER ==
--- NOTE | 2021-02-26 16:39 | DEXA Report ---
PROCEDURE: Dexa Spine and/or Hip INDICATIONS: MULTIPLE MYELOMA, OSTEOPOROSIS TECHNIQUE: Dual energy x-ray absorptiometry (DXA) was performed on a [employer] System. Regions measur ed are the AP Spine, femoral neck, and if needed forearm. Forearm was obtained secondary to bilatera l hip arthroplasties. COMPARISON: None. FINDINGS: Lumbar Spine: Bone Mineral Density 1.158 g/cm/cm,T score -0.5, normal Left forearm: Bone Mineral Density 0.749 g/cm/cm, T score -0.1, normal (T score greater or equal to -1.0: NORMAL) (T score from -1.1 to -2.4: OSTEOPENIA) (T score less than or equal to -2.5 to: OSTEOPOROSIS) Impression: Normal bone mineral density. Patients with diagnosis of osteoporosis or osteopenia should have regular bone mineral density assess ment. For those eligible for Medicare, routine testing is allowed once every 2 years. Testing frequ ency can be increased for patients who have rapidly progressing disease or for those who are receivin g medical therapy to restore bone mass. Reviewed by: Olivia Clarke MD on 02/26/2021 4:38 PM PDT Approved by: Olivia Clarke MD on 02/26/2021 4:38 PM PDT Station ID: [id number]
--- NOTE | 2021-02-26 17:17 | CT Report ---
PROCEDURE: CHEST WO INDICATIONS: Multiple Myeloma TECHNIQUE: Noncontrast 5 mm thick sections acquired from the pulmonary apices to the posterior costophrenic angl es. 7 mm thick coronal and sagittal MIP reformats were then acquired. For radiation dose reduction, the following was used: automated exposure control, adjustment of mA and/or kV according to patient size. COMPARISON: Prior chest CT imaging from 07/15/2019 reviewed. FINDINGS: Image quality: Excellent. Lungs and pleura: No acute air space opacities. No pleural effusions or pneumothorax. Central and peripheral airways are patent and normal in caliber. Mediastinum: Heart size is normal. No pericardial effusion. No mediastinal adenopathy by size crit eria. Thoracic aorta and central pulmonary arteries are normal in size. Esophagus is normal in kun narayan. No hiatal hernia. Bones and chest wall: There is mild heterogeneity of the marrow space at the ribs bilaterally, and wi thin several portions of the lumbosacral spine but without osteolytic or blastic change that would in dicate a potential for pathologic fracture. In the setting of reported multiple myeloma improved visu alization of the marrow space would be achieved by MR scanning marrow survey and also plain film meta static survey including selected portions of the axial and appendicular skeleton.. No vertebral body compression fractures. No axillary or supraclavicular adenopathy by size criteria. The thyroid is normal in size and there are no incidental findings. Abdomen: Visualized upper abdominal solid organs and bowel loops appear normal in the absence of con trast. IMPRESSION: No pulmonary lesion is found, no mediastinal or hilar adenopathy is seen. There is noted that there is a somewhat subtle heterogeneity of the marrow space through the ribs and at several po rtions along the thoracic line, which would be more accurately assessed with MR scanning and metastat ic bone survey as noted above, utilizing plain films. Currently no impending pathologic fracture is f ound. The prior chest CT also dated no similar abnormalities involving the ribs. Reviewed by: Chay Sanderson MD on 02/26/2021 5:16 PM PDT Approved by: Chay Sanderson MD on 02/26/2021 5:16 PM PDT Station ID: [id number]
--- NOTE | 2021-02-26 17:41 | CT Report ---
PROCEDURE: Abdomen/Pelvis WO INDICATIONS: Multiple Myeloma TECHNIQUE: Noncontrast 5 mm thick sections acquired from the diaphragms to the symphysis. 5 mm coronal and sagi ttal reformats were then performed. For radiation dose reduction, the following was used: automated exposure control, adjustment of mA and/or kV according to patient size. COMPARISON: 07/07/2019 CT abdomen/pelvis.. FINDINGS: Image quality: Diminished by both absence of oral and intravenous contrast. ABDOMEN: Lung bases: Lung bases are clear. Heart size is normal. The previously performed CT that included the lower chest on the left from 07/07/2019 had identified on osteolytic expansile mass that apparent ly has been successfully treated, now with no expansile mass but with distortion of the rib called in this area, approximately the lateral aspect of the left ninth rib. Solid organs: Liver and spleen are normal in size. Gallbladder appears normal Pancreas is normal i n contours. No adrenal nodules. Kidneys are normal in size, without hydronephrosis or nephrolithias is. Peritoneum and bowel: Unenhanced bowel loops demonstrate normal wall thickness and caliber. No free fluid or air. Nodes and vessels: No retroperitoneal or mesenteric adenopathy by size criteria. Aorta and inferior vena cava are normal in caliber. Miscellaneous: No ventral hernias. PELVIS: Genitourinary: Bladder wall thickness is normal. Miscellaneous: No inguinal hernias or adenopathy. Bones: No suspicious bony lesions. No vertebral body compression fractures. IMPRESSION: Healed left lateral ninth rib but distorted from prior active neoplastic process identified in [address] scanning. No new osseous lesion is found. No adenopathy seen over the abdomen and pe lvis. Reviewed by: Chay Sanderson MD on 02/26/2021 5:40 PM PDT Approved by: Chay Sanderson MD on 02/26/2021 5:40 PM PDT Station ID: [id number]
== END 2021-02-26 08:10 | disposition home or self-care (01) ==
LOC: DI 08:09
PROVIDERS: ATTEND Internal Medicine
DX: C90.01 Multiple myeloma in remission (principal); Z96.643 Presence of artificial hip joint, bilateral

== ENCOUNTER 2021-03-13 12:36 | Outpatient (CLI) | payer MEDICARE, OTHER ==
--- NOTE | 2021-03-13 17:43 | XRAY Report ---
PROCEDURE: Skeletal Survey INDICATIONS: EVAL FOR LYLIZ LESIONS TECHNIQUE: AP and lateral views of the skeletal system were obtained. COMPARISON: CT of chest, abdomen and pelvis dated 02/26/2021. FINDINGS: Examination of skull shows no gross lytic lesion. Alignment of cervical, thoracic and lumbar spine is anatomic. No gross lytic lesion is seen in verteb ral bodies. Degenerative endplate changes are noted throughout cervical, thoracic and lumbar spine. N o gross acute compression fracture or spondylolisthesis. Expansile lesion involving left lateral ninth rib is noted better evaluated on previous CT study. Sug gestion of expansile lytic lesion involving left posterior eighth rib is also noted. No other definit e lytic or sclerotic rib lesion is seen. Subtle radiolucencies are seen in bilateral mid to distal clavicle. Questionable lytic lesions are no [place] in bilateral proximal humeral shaft as well as right mid humeral shaft concerning for lytic lesio ns. Patient is status post bilateral total hip arthroplasty. No definite lytic or sclerotic lesions are s een in bilateral femoral shaft or knee joints. IMPRESSION: 1. Study is slightly limited due to diffuse osteopenia. No definite lytic lesion is seen in the verte bral bodies although heterogeneous appearance of vertebral bodies are noted on recent CT of chest, ab domen and pelvis study. No pathologic compression fracture. Degenerative disc disease throughout the spine. 2. Suggestion of expansile lytic lesion involving left posterior eighth rib and left lateral ninth ri b. 3. Suggestion of lytic lesions involving bilateral mid to distal clavicle as well as bilateral proxim al humeral shaft and right mid humeral shaft. Reviewed by: Yovani Barrios MD on 03/13/2021 5:42 PM PDT Approved by: Yovani Barrios MD on 03/13/2021 5:42 PM PDT Station ID: [id number]
== END 2021-03-13 12:37 | disposition home or self-care (01) ==
LOC: DI 12:36
PROVIDERS: ATTEND Internal Medicine
DX: M85.89 Other specified disorders of bone density and structure, multiple sites (principal); M50.30 Other cervical disc degeneration, unspecified cervical region; M51.36 Other intervertebral disc degeneration, lumbar region; M51.34 Other intervertebral disc degeneration, thoracic region; R93.7 Abnormal findings on diagnostic imaging of other parts of musculoskeletal system

== ENCOUNTER 2021-04-13 14:25 | Emergency (ER) | payer MEDICARE, OTHER ==
[2021-04-13 14:32] VITALS: BP 165/78
[2021-04-13] MEDS ORDERED: TETANUS/DIPHTHERIA/PERTUSSIS 0.5 ML SYRINGE IM ONE (15:11)
[2021-04-13] MEDS ORDERED: BACITRACIN ZINC OINT 1 PACKET TOP STA (15:12)
--- NOTE | 2021-04-13 15:15 | ED Physician Documentation ---
History of Present Illness - Stated complaint Stated Complaint: HEAD LAC - Chief complaint Chief Complaint: Laceration - History obtained from History obtained from: Patient - Additonal information Additional information: 85-year-old man normal blood thinners presents status post mechanical trip and fall at [employer] [place], hitting his left brow line without LOC. No other injuries. Review of Systems Skin: reports: Laceration (s) Neurologic: reports: Other (browline injury). denies: Focal weakness, Numbness, Confused, Headache, LOC PD PAST MEDICAL HISTORY - Past Medical History Past Medical History: Yes Cardiovascular: High cholesterol Respiratory: None Neuro: None Endocrine/Autoimmune: None GI: Diverticulitis : None HEENT: None Psych: None Musculoskeletal: Osteoarthritis Derm: None Other Past Medical History: Multiple Myloma (remission) - Past Surgical History Past Surgical History: Yes General: Colonoscopy, EGD Ortho: Hip replacement HEENT: Cataracts, Tonsil/Adenoidectomy - Present Medications Home Medications: Ambulatory Orders Medication Instructions Recorded Confirmed Alfuzosin HCl [Uroxatral] 10 mg PO DAILY 10/26/19 04/13/21 Cyanocobalamin (Vitamin B-12) 1,000 mcg PO DAILY 10/26/19 04/13/21 [Vitamin B-12] Finasteride 5 mg PO DAILY 10/26/19 04/13/21 Fluticasone Propionate [Armonair 55 mcg INH DAILY 10/26/19 04/13/21 Respiclick] Latanoprost [Xalatan] 1 drops EACHEYE DAILY 10/26/19 04/13/21 Simvastatin 10 mg PO DAILY 10/26/19 03/13/21 Calcium Phosphate Dibas/Vit D3 1 tab PO DAILY 10/17/20 04/13/21 [Vitamin E8-Yhxwadd-Lrlp Tablet] Acyclovir 400 mg PO DAILY 03/13/21 04/13/21 Bortezomib (Subq) [Velcade (Subq)] 3.5 mg SUBQ ONCE 04/13/21 04/13/21 - Allergies Allergies/Adverse Reactions: Allergies Allergy/AdvReac Type Severity Reaction Status Date / Time No Known Drug Allergies Allergy Verified 04/13/21 14:28 - Social History Does the pt smoke?: No Smoking Status: Never smoker Does the pt drink ETOH?: Yes ETOH Use: Wine Does the pt have substance abuse?: No - Immunizations Immunizations are current?: Yes - POLST Patient has POLST: No PD ED PE NORMAL - Vitals Vital signs reviewed: Yes - General General: Alert and oriented X 3, No acute distress, Well developed/nourished - HEENT HEENT: Atraumatic, PERRL, EOMI, Other (L browline with macerated tissue, avulsion, and area of laceration) - Neck Neck: No bony TTP - Derm Derm: Normal color, Warm and dry - Neuro Neuro: Alert and oriented X 3, 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, No motor deficit, No sensory deficit, Normal speech - Psych Psych: Normal mood, Normal affect Results - Vitals Vitals: Vital Signs - 24 hr 04/13/21 14:28 Temperature 36.5 C Heart Rate 81 Respiratory 18 Rate Blood Pressure 165/78 H O2 Saturation 98 Oxygen O2 Source Room air Procedures - Laceration (location) Face left Length in cm: 3 Wound type: Irregular, Flap, Clean Neurovascular status: Sensory intact, Motor intact, Vascular intact Anesthesia: Lidocaine 1% with epi Wound preparation: Irrigated copiously NS, Wound explored, To the base, debridement of wound edges (traumatic laceration/avulsion), Multiple flaps aligned. No: FB identified Skin layer closure: Nylon, Interrupted, Size #-0 - enter number (6), Sutures - enter # (5) Other: Patient tolerated well, No complications, Neurovascular intact, Dressing applied, Tetanus booster given PD MEDICAL DECISION MAKING - ED course ED course: 85yM presents with lac to L lateral browline after tripping and falling. Patient otherwise asymptomatic. tdap updated, lac cleaned and repaired without issue.strict return precautions given. Departure - Departure Disposition: 01 Home, Self Care Clinical Impression: Laceration of face Condition: Good Instructions: ED Laceration All Comments: You were seen in the emergency department for laceration of the left face. We placed 5 stitches and these need to be removed in 5 days. Return to the emergency department if you have any headache, vision changes, nausea, confusion, new or worsening symptoms or other concerns. Follow-up with your primary doctor.
== END 2021-04-13 16:04 | disposition home or self-care (01) ==
LOC: ED 14:25
DX: S01.112A Laceration without foreign body of left eyelid and periocular area, initial encounter (principal); W01.198A Fall on same level from slipping, tripping and stumbling with subsequent striking against other object, initial encounter; Y92.89 Other specified places as the place of occurrence of the external cause; Z79.01 Long term (current) use of anticoagulants; Z23 Encounter for immunization
CPT/HCPCS: 12013; 90471; 99285

== ENCOUNTER 2021-04-13 17:44 | Observation (INO) | payer MEDICARE, OTHER ==
[2021-04-13 18:09] LABS: BASOPHILS % (AUTO) 0.3 %; EOSINOPHILS # (AUTO) 0.1 10^3/uL (0.0-0.7); EOSINOPHILS % (AUTO) 1.4 %; HCT - HEMATOCRIT 34.6 % (42.0-52.0); HGB - HEMOGLOBIN 11.4 g/dL (14.0-18.0); LYMPHOCYTES # (AUTO) 0.7 10^3/uL (1.5-3.5); LYMPHOCYTES % (AUTO) 10.3 %; MEAN CORPUSCULAR HEMOGLOBIN 33.1 pg (27.0-31.0); MEAN CORPUSCULAR HGB CONC 32.9 g/dL (32.0-36.0); MEAN CORPUSCULAR VOLUME 100.6 fL (80.0-94.0); MEAN PLATELET VOLUME 10.1 fL (7.4-11.4); MONOCYTES # (AUTO) 0.5 10^3/uL (0.0-1.0); MONOCYTES % (AUTO) 6.8 %; NEUTROPHILS # (AUTO) 5.8 10^3/uL (1.5-6.6); NEUTROPHILS % (AUTO) 80.9 %; PLT - PLATELET COUNT 121 10^3/uL (130-450); RED BLOOD COUNT 3.44 10^6/uL (4.70-6.10); RED CELL DISTRIBUTION WIDTH 13.8 % (12.0-15.0); WHITE BLOOD COUNT 7.2 x10^3/uL (4.8-10.8)
[2021-04-13 18:22] LABS: ALBUMIN/GLOBULIN RATIO 1.4 (1.0-2.2); BILIRUBIN,TOTAL 0.6 mg/dL (0.2-1.0); CALCIUM 8.7 mg/dL (8.5-10.3); CREATININE 1.8 mg/dL (0.6-1.2); POTASSIUM 4.1 mmol/L (3.5-5.0); TOTAL PROTEIN 6.8 g/dL (6.7-8.2)
[2021-04-13] MEDS ORDERED: IOPAMIDOL-300 100 ML VIAL ONE (18:29)
[2021-04-13 18:49] LABS: BILIRUBIN,URINE NEGATIVE (NEGATIVE); GLUCOSE, URINE (UA) NEGATIVE (NEGATIVE); KETONES,URINE (UA) NEGATIVE (NEGATIVE); LEUKOCYTE ESTERASE, URINE NEGATIVE (NEGATIVE); NITRITE,URINE NEGATIVE (NEGATIVE); OCCULT BLOOD,URINE LARGE (NEGATIVE); PROTEIN,URINE 100 mg/dL (NEGATIVE); UROBILINOGEN,URINE 0.2 (NORMAL) E.U./dL (NORMAL)
[2021-04-13] MEDS ORDERED: IOPAMIDOL-300 100 ML VIAL IVP ONE (18:52)
[2021-04-13 18:54] LABS: CLARITY,URINE CLOUDY (CLEAR)
[2021-04-13 19:03] LABS: BACTERIA,URINE Rare /HPF (None Seen); RBC,URINE TNTC /HPF (0-5); SQUAMOUS EPITHELIAL CELL,UR NONE SEEN (<= Few); WBC,URINE 0-3 /HPF (0-3)
--- NOTE | 2021-04-13 19:10 | CT Report ---
PROCEDURE: Abdomen/Pelvis W INDICATIONS: Left flank pain status post fall and hematuria CONTRAST: IV CONTRAST: Isovue 300 ml: 100 PO CONTRAST: *NO PO CONTRAST TECHNIQUE: After the administration of intravenous contrast, 5 mm thick sections acquired from the diaphragms to the symphysis. 5 mm thick coronal and sagittal reformats were acquired. For radiation dose reducti on, the following was used: automated exposure control, adjustment of mA and/or kV according to liset ent size. COMPARISON: 02/26/[address] FINDINGS: These images demonstrate a left renal subcapsular fluid collection, likely hematoma given the history of recent fall, measuring proximately 7.9 x 2.5 cm maximum axial dimension and 6 cm maximum cranioca udal dimension. The hematoma exerts mild mass effect upon the subjacent renal parenchyma. The collect ing system is not obviously effaced. There is no hydronephrosis or hydroureter. Perinephric fat stran ding surrounds the left kidney. The right kidney and collecting system are unremarkable. Both adrenal glands are within normal limits. There is also some small volume fluid surrounding the inferior and posterior aspect of the spleen. No splenic laceration identified. The liver, gallbladder, and pancreas are within normal limits. No acute enteric abnormality. Diffuse sigmoid and distal colonic diverticulosis with no findings of diverticulitis. Small hiatal hernia. Nonaneurysmal abdominal aorta. No threshold enlarged intra-abdominal or retroperitoneal lymph node. Streak artifact from bilateral total hip arthroplasties significantly limits evaluation of the pelvis . There is no obvious mass or acute finding in the pelvic viscera within this limitation. No pelvic or proximal femur fracture demonstrated. Normal vertebral body height and alignment. Severa l mildly expansile lytic lesions in the ribs are consistent with lesions of multiple myeloma. There a re a few similar possible myeloma lesions in the vertebral bodies as well. There is diffuse demineral ization. IMPRESSION: Left renal subcapsular hematoma exerting mild mass effect on the subjacent parenchyma. Correlate for page kidney. Multiple bone lesions consistent with multiple myeloma lesions. No acute fracture identified. Reviewed by: Sanjay Baum MD on 04/13/2021 7:08 PM PDT Approved by: Sanjay Buam MD on 04/13/2021 7:08 PM PDT Station ID: [id number]
[2021-04-13] MEDS ORDERED: MORPHINE 2 MG/ML CARPUJECT IVP STA (19:27)
[2021-04-13] MEDS ORDERED: SODIUM CHLORIDE 0.9% 1,000 ML IV STA (19:27)
--- NOTE | 2021-04-13 21:21 | ED Physician Documentation ---
History of Present Illness - Stated complaint Stated Complaint: LT SIDE PX - Chief complaint Chief Complaint: Abd Pain - History obtained from History obtained from: Patient, Family - History of Present Illness Timing: Today Pain level max: 4 Pain level now: 4 - Additonal information Additional information: 85 year old male tripped and fell at [employer] today. Hit his head. Seen here earlier by Dr. Avendaño and laceration repaired. When he arrived home he went to urinate and noted blood in the urine. He also started to develop left flank pain. Not present at the time of initial evaluation. brought him back in for evaluation. No headache. No nausea or vomiting. Nothing makes it better or worse. No back pain. No hip pain or knee pain. Review of Systems Ten Systems: 10 systems reviewed and negative Constitutional: denies: Fever, Chills Respiratory: denies: Cough GI: reports: Abdominal Pain (Left flank, dull, ache). denies: Nausea, Vomiting, Diarrhea Skin: denies: Rash Musculoskeletal: denies: Neck pain, Back pain Neurologic: denies: Headache PD PAST MEDICAL HISTORY - Past Medical History Past Medical History: Yes Cardiovascular: High cholesterol Respiratory: None Neuro: None Endocrine/Autoimmune: None GI: Diverticulitis : None HEENT: None Psych: None Musculoskeletal: Osteoarthritis Derm: None - Past Surgical History Past Surgical History: Yes General: Colonoscopy, EGD Ortho: Hip replacement HEENT: Cataracts, Tonsil/Adenoidectomy - Present Medications Home Medications: Ambulatory Orders Medication Instructions Recorded Confirmed Alfuzosin HCl [Uroxatral] 10 mg PO DAILY 10/26/19 04/13/21 Cyanocobalamin (Vitamin B-12) 1,000 mcg PO DAILY 10/26/19 04/13/21 [Vitamin B-12] Finasteride 5 mg PO DAILY 10/26/19 04/13/21 Fluticasone Propionate [Armonair 55 mcg INH DAILY 10/26/19 04/13/21 Respiclick] Latanoprost [Xalatan] 1 drops EACHEYE DAILY 10/26/19 04/13/21 Simvastatin 10 mg PO DAILY 10/26/19 03/13/21 Calcium Phosphate Dibas/Vit D3 1 tab PO DAILY 10/17/20 04/13/21 [Vitamin B2-Yyigxcy-Zrwb Tablet] Acyclovir 400 mg PO DAILY 03/13/21 04/13/21 Bortezomib (Subq) [Velcade (Subq)] 3.5 mg SUBQ ONCE 04/13/21 04/13/21 - Allergies Allergies/Adverse Reactions: Allergies Allergy/AdvReac Type Severity Reaction Status Date / Time No Known Drug Allergies Allergy Verified 04/13/21 17:52 - Social History Does the pt smoke?: No Smoking Status: Never smoker Does the pt drink ETOH?: Yes Does the pt have substance abuse?: No - Immunizations Immunizations are current?: Yes - POLST Patient has POLST: No PD ED PE NORMAL - Vitals Vital signs reviewed: Yes - General General: Alert and oriented X 3, No acute distress - HEENT HEENT: Moist mucous membranes - Neck Neck: Supple, no meningeal sign - Cardiac Cardiac: RRR, Strong equal pulses - Respiratory Respiratory: No respiratory distress, Clear bilaterally - Abdomen Abdomen: Soft, Non tender, Non distended - Back Back: No spinal TTP, Other (Mild left CVA tenderness to palpation. No right CVA tenderness) - Derm Derm: Warm and dry - Extremities Extremities: No edema - Neuro Neuro: Alert and oriented X 3 - Psych Psych: Normal mood, Normal affect Results - Vitals Vitals: Vital Signs - 24 hr 04/13/21 04/13/21 04/13/21 17:52 18:07 21:16 Temperature 36.6 C 36.6 C Heart Rate 85 85 87 Respiratory 18 18 18 Rate Blood Pressure 138/53 H 138/53 H 144/83 H O2 Saturation 98 98 96 04/13/21 21:59 Temperature 36.6 C Heart Rate 87 Respiratory 18 Rate Blood Pressure 144/83 H O2 Saturation 96 Oxygen O2 Source Room air - Labs Labs: Laboratory Tests 04/13/21 04/13/21 04/13/21 18:05 18:05 18:44 WBC 7.2 RBC 3.44 L Hgb 11.4 L Hct 34.6 L MCV 100.6 H MCH 33.1 H MCHC 32.9 RDW 13.8 Plt Count 121 L MPV 10.1 Neut # (Auto) 5.8 Lymph # (Auto) 0.7 L Forrest # (Auto) 0.5 Eos # (Auto) 0.1 Baso # (Auto) 0.0 Absolute Nucleated RBC 0.00 Nucleated RBC % 0.0 Sodium 136 Potassium 4.1 Chloride 103 Carbon Dioxide 23 Anion Gap 10.0 BUN 32 H Creatinine 1.8 H Estimated GFR (MDRD) 36 L Glucose 174 H Calcium 8.7 Total Bilirubin 0.6 AST 16 ALT 13 Alkaline Phosphatase 78 Total Protein 6.8 Albumin 4.0 Globulin 2.8 Albumin/Globulin Ratio 1.4 Lipase 25 Urine Color DARK YELLOW Urine Clarity CLOUDY Urine pH 5.0 Ur Specific [place] 1.025 Urine Protein 100 H Urine Glucose (UA) NEGATIVE Urine Ketones NEGATIVE Urine Occult Blood LARGE H Urine Nitrite NEGATIVE Urine Bilirubin NEGATIVE Urine Urobilinogen 0.2 (NORMAL) Ur Leukocyte Esterase NEGATIVE Urine RBC TNTC H Urine WBC 0-3 Ur Squamous Epith Cells NONE SEEN Urine Bacteria Rare Ur Microscopic Review INDICATED Urine Culture Comments NOT INDICATED Nasal Adenovirus (PCR) Nasal B. parapertussis DNA (PCR) Nasal Coronavir 229E PCR Nasal Coronavir HKU1 PCR Nasal Coronavir NL63 PCR Nasal Coronavir OC43 PCR Nasal Enterovir/Rhinovir PCR Nasal Influenza B PCR Nasal Influenza A PCR Nasal Parainfluen 1 PCR Nasal Parainfluen 2 PCR Nasal Parainfluen 3 PCR Nasal Parainfluen 4 PCR Nasal RSV (PCR) Nasal B.pertussis DNA PCR Nasal C.pneumoniae (PCR) Cody Human Metapneumo PCR Nasal M.pneumoniae (PCR) Nasal SARS-CoV-2 (PCR) 04/13/21 20:12 WBC RBC Hgb Hct MCV MCH MCHC RDW Plt Count MPV Neut # (Auto) Lymph # (Auto) Forrest # (Auto) Eos # (Auto) Baso # (Auto) Absolute Nucleated RBC Nucleated RBC % Sodium Potassium Chloride Carbon Dioxide Anion Gap BUN Creatinine Estimated GFR (MDRD) Glucose Calcium Total Bilirubin AST ALT Alkaline Phosphatase Total Protein Albumin Globulin Albumin/Globulin Ratio Lipase Urine Color Urine Clarity Urine pH Ur Specific [place] Urine Protein Urine Glucose (UA) Urine Ketones Urine Occult Blood Urine Nitrite Urine Bilirubin Urine Urobilinogen Ur Leukocyte Esterase Urine RBC Urine WBC Ur Squamous Epith Cells Urine Bacteria Ur Microscopic Review Urine Culture Comments Nasal Adenovirus (PCR) NOT DETECTED Nasal B. parapertussis DNA (PCR) NOT DETECTED Nasal Coronavir 229E PCR NOT DETECTED Nasal Coronavir HKU1 PCR NOT DETECTED Nasal Coronavir NL63 PCR NOT DETECTED Nasal Coronavir OC43 PCR NOT DETECTED Nasal Enterovir/Rhinovir PCR NOT DETECTED Nasal Influenza B PCR NOT DETECTED Nasal Influenza A PCR NOT DETECTED Nasal Parainfluen 1 PCR NOT DETECTED Nasal Parainfluen 2 PCR NOT DETECTED Nasal Parainfluen 3 PCR NOT DETECTED Nasal Parainfluen 4 PCR NOT DETECTED Nasal RSV (PCR) NOT DETECTED Nasal B.pertussis DNA PCR NOT DETECTED Nasal C.pneumoniae (PCR) NOT DETECTED Cody Human Metapneumo PCR NOT DETECTED Nasal M.pneumoniae (PCR) NOT DETECTED Nasal SARS-CoV-2 (PCR) NOT DETECTED - Rads (name of study) CT abdomen pelvis Radiology: Final report received, EMP read contemporaneously, See rad report PD MEDICAL DECISION MAKING - ED course Complexity details: reviewed results, re-evaluated patient, considered differential, d/w patient, d/w family, d/w property consultant ED course: 85-year-old male presents to the emergency department with a left renal subcapsular hematoma with mass-effect on the parenchyma. Possible page kidney, more likely traumatic injury. Discussed with trauma and urology at [facility]. Dr. Sloan from trauma and Dr. Cortes from urology. Both recommend ICU overnight, serial exams and transfer if worsening. Discussed with general surgery here, Dr. Barrera who accepts and will place the patient in the hospital for further care. This document was made in part using voice recognition software. While efforts are made to proofread this document, sound alike and grammatical errors may occur. Left renal subcapsular hematoma exerting mild mass effect on the subjacent parenchyma. Correlate for page kidney. Multiple bone lesions consistent with multiple myeloma lesions. No acute fracture identified. Departure - Departure Disposition: 66 [facility] DC/Xfer Clinical Impression: Kidney laceration Qualifiers: Encounter type: initial encounter Laterality: left Qualified Code(s): S37.032A - Laceration of left kidney, unspecified degree, initial encounter Renal hematoma Qualifiers: Encounter type: initial encounter Laterality: left Qualified Code(s): S37.012A - Minor contusion of left kidney, initial encounter Condition: Stable
[2021-04-13 21:51] LABS: B. PARAPERTUSSIS- RESP PCR PAN NOT DETECTED; B. PERTUSSIS- RESP PCR PANEL NOT DETECTED; C. PNEUMONIAE- RESP PCR PANEL NOT DETECTED; CORONAVIRUS 229E-RESP PCR NOT DETECTED; CORONAVIRUS HKU1-RESP PCR NOT DETECTED; CORONAVIRUS NL63-RESP PCR NOT DETECTED; CORONAVIRUS OC43-RESP PCR NOT DETECTED; HUMAN METAPNEUMOVIRUS NOT DETECTED; INFLUENZA A- RESP PCR PANEL NOT DETECTED; INFLUENZA B - RESP PCR PANEL NOT DETECTED; M. PNEUMONIAE- RESP PCR PANEL NOT DETECTED; PARAINFLUENZA VIRUS 1 NOT DETECTED; PARAINFLUENZA VIRUS 2 NOT DETECTED; PARAINFLUENZA VIRUS 3 NOT DETECTED; PARAINFLUENZA VIRUS 4 NOT DETECTED; RHINOVIRUS/ENTEROVIRUS NOT DETECTED; RSV- RESP PCR PANEL NOT DETECTED; SARS-CoV-2 -RESP PCR PANEL NOT DETECTED
--- NOTE | 2021-04-13 21:55 | SURGERY HX AND PHYSICAL(T) ---
Surgical History & Physical - Chief Complaint/HPI Chief Complaint: fell onto concrete striking left abdomen and head History of Present Illness: This 85 yo male in good compensated health fell onto his left side and struck his head while coming out of a store at [employer] today. He had no LOC. He was seen in ER here and had a laceration on the the face sutured. He went home and urinated with blood seen in the urine and his brought him back to the ER. CT scan showed a left pernephric hematoma. He is not on anticoagulation. He has multiple myeloma and receives Velcade, a monoclonal that has risk of increased bleeding. He denies headache or abdominal pain and has had no nausea or vom iting. - PMH/PSH/Social Hx Does the pt have a hx of MRSA?: No Neurological History: None Eyes, Ears, Nose, Throat: None Cardiovascular: High cholesterol Respiratory: None Skin: None Endocrine/Autoimmune: None Gastrointestinal: Diverticulitis Urinary: None Musculoskeletal: Osteoarthritis Blood Disorders: None (Multiple myeloma) Psychiatric: None General: Colonoscopy, EGD Orthopedic: Hip replacement Eyes Ears Nose Throat (EENT): Cataracts, Tonsil/Adenoidectomy Smoking Status: Never smoker Does the pt drink ETOH?: Yes Frequency: Daily Does the pt have substance abuse?: No - Family Hx Family Hx: Unremarkable - Home Meds and Allergies Home Medications: Alfuzosin HCl [Uroxatral] 10 mg PO DAILY 10/26/19 Cyanocobalamin (Vitamin B-12) [Vitamin B-12] 1,000 mcg PO DAILY 10/26/19 Finasteride 5 mg PO DAILY 10/26/19 Fluticasone Propionate [Armonair Respiclick] 55 mcg INH DAILY 10/26/19 Latanoprost [Xalatan] 1 drops EACHEYE DAILY 10/26/19 Simvastatin 10 mg PO DAILY 10/26/19 Calcium Phosphate Dibas/Vit D3 [Vitamin P6-Rkaweyb-Caeg Tablet] 1 tab PO DAILY 10/17/20 Acyclovir 400 mg PO DAILY 03/13/21 Bortezomib (Subq) [Velcade (Subq)] 3.5 mg SUBQ ONCE 04/13/21 Allergies/Adverse Reactions: Allergies Allergy/AdvReac Type Severity Reaction Status Date / Time No Known Drug Allergies Allergy Verified 04/13/21 17:52 - Review of Systems Constitutional: No: Weakness HEENT: No: Headaches Cardiac: No: CAD Respiratory: No: Shortness of breath Gastrointestinal: Abdominal pain (Tender with swelling in left lateral subcostal area). No: Nausea, Vomiting - Vital Signs Heart Rate: 87 Blood Pressure: 144/83 Temperature: 36.6 C Respiratory Rate: 18 O2 Saturation: 96 Weight (kg): 68.039 kg Height: 1.68 m - Physical Exam General Appearance: negative: Other (abrasion over left eyelid) Eyes Bilatera: positive: Normal inspection, PERRL ENT: positive: ENT inspection nml Neck: positive: Nml inspection. negative: Swelling/bruising Respiratory: positive: Chest non-tender. negative: Other (No crepitance or fractures palpable) Abdomen: positive: Non-tender, Other (Swelling left subcostal area without ecchymosis). negative: Guarding, Rebound Rectal: negative: Other (deferred) Back: positive: Nml inspection Skin: positive: Color nml - Patient Review Patient Review: Problems were reviewed with the patient during this visit. Medications were reviewed with the patient during this visit. Allergies were reviewed this patient during this visit. Pertinent Tests Reviewed: All pertitent test for this patient were reviewed. - Assessment & Plan Assessment and Plan: 1) Left perinephric Hematoma with hematuria, small inferior pole lac 2) Left facial laceration, closed in ER today 3) Multiple myeloma on Velcade, which has increased risk of bleeding associated PLAN: Admit ICU for observation, serial H/H
[2021-04-13] MEDS ORDERED: SODIUM CHLORIDE FLUSH 0.9% 10 ML SYRINGE IVP PRN (22:04)
[2021-04-13] MEDS ORDERED: ONDANSETRON ODT 4 MG TABLET TL PRN (22:04)
[2021-04-13] MEDS ORDERED: oxyCODONE 5 MG TABLET PO PRN (22:04)
[2021-04-13] MEDS ORDERED: HYDROmorphone 0.5 MG/0.5 ML SYRINGE IVP PRN (22:04)
[2021-04-13] MEDS ORDERED: LACTATED RINGERS 1,000 ML IV SCH (23:00)
[2021-04-14] MEDS ORDERED: SODIUM CHLORIDE FLUSH 0.9% 10 ML SYRINGE IVP SCH (01:00)
[2021-04-14 02:20] LABS: HGB - HEMOGLOBIN 10.8 g/dL (14.0-18.0)
[2021-04-14 10:30] VITALS: BP 146/77
--- NOTE | 2021-04-14 11:00 | DISCHARGE SUMMARY ---
Discharge Summary Admit Date: 04/13/21 Discharge Date: 04/14/21 Discharging Provider: Bruce Condition at Discharge: Stable Discharge Disposition: 01 Home, Self Care - DIAGNOSES Admission Diagnoses: Status post fall with left perinephric hematoma Left facial laceration Discharge Diagnoses with Status of Each Condition: 1. Left perinephric hematoma with stable vital signs and no evidence of continued bleeding. Hemoglobin not significantly lower. Patient is not on anticoagulants. 2. Left facial laceration. 3. Multiple myeloma on Velcade, last dose given last week. - HPI History of Present Illness: 85-year-old male fell coming out of a store at [place] yesterday. He came to the ER and had a facial laceration sutured. He then went home urinated and saw blood in his urine. He was brought back to the emergency room where an CT scan showed a left perinephric hematoma. The hematuria resolved. The patient had stable vital signs on overnight observation and only a minimal decrease in the hemoglobin hematocrit. - HOSPITAL COURSE Hospital Course: The patient was stable during observation with resolution of hematuria and stable vital signs. Repeat hemoglobin hematocrit showed a small drop. Patient had no complaints of dizziness or syncope. He was ambulatory and taking a diet at the time of discharge. - ALLERGIES Allergies/Adverse Reactions: Allergies Allergy/AdvReac Type Severity Reaction Status Date / Time No Known Drug Allergies Allergy Verified 04/13/21 17:52 - MEDICATIONS Home Medications: Ambulatory Orders Medication Instructions Recorded Confirmed Alfuzosin HCl [Uroxatral] 10 mg PO DAILY 10/26/19 04/13/21 Cyanocobalamin (Vitamin B-12) 1,000 mcg PO DAILY 10/26/19 04/13/21 [Vitamin B-12] Finasteride 5 mg PO DAILY 10/26/19 04/13/21 Fluticasone Propionate [Armonair 55 mcg INH DAILY 10/26/19 04/13/21 Respiclick] Latanoprost [Xalatan] 1 drops EACHEYE DAILY 10/26/19 04/13/21 Simvastatin 10 mg PO DAILY 10/26/19 03/13/21 Calcium Phosphate Dibas/Vit D3 1 tab PO DAILY 10/17/20 04/13/21 [Vitamin F4-Aiufplj-Esxs Tablet] Acyclovir 400 mg PO DAILY 03/13/21 04/13/21 Bortezomib (Subq) [Velcade (Subq)] 3.5 mg SUBQ ONCE 04/13/21 04/13/21 - PHYSICAL EXAM AT DISCHARGE General Appearance: positive: No acute distress Eyes Bilateral: positive: Normal inspection ENT: positive: ENT inspection nml Neck: positive: Nml inspection Respiratory: positive: Chest non-tender Cardiovascular: positive: Regular rate & rhythm Abdomen: positive: Non-tender, No distention - LABS Result Diagrams: 04/14/21 02:12 04/13/21 18:05 - QUALITY (Female Hip Fx Only) Was patient sent home on osteoporosis medication?: No - FOLLOW UP Follow Up: Patient will follow up in the surgery clinic in 1 week. He and his have been instructed for him to return to the emergency room if he develops any weakness or dizziness or other signs of bleeding.
--- NOTE | 2021-04-14 11:08 | Discharge Plan ---
Discharge Plan Problem Reviewed?: Yes Disposition: Home, Self Care Condition: Stable Diet: Regular Activity Restrictions: Activity as Tolerated (Be careful with activities. No heavy lifting, no strenuous activities for 1 to 2 weeks.) Shower Restrictions: No Driving Restrictions: No Additional Instructions or Follow Up instructions: Follow-up in surgery clinic in 1 week. No Smoking: If you smoke, Please STOP! Call for help. Follow-up with: Hazel Short PA-C [Primary Care Provider] -
[2021-04-14] MEDS ORDERED: SACCHAROMYCES BOULARDII 250 MG CAPSULE ONE (16:10)
== END 2021-04-14 11:25 | disposition home or self-care (01) ==
LOC: ED 17:44 → ICU 22:04
PROVIDERS: ADMIT Surgery; ATTEND Surgery
DX: S37.032A Laceration of left kidney, unspecified degree, initial encounter (principal); W01.198A Fall on same level from slipping, tripping and stumbling with subsequent striking against other object, initial encounter; Y92.512 Supermarket, store or market as the place of occurrence of the external cause; S01.112A Laceration without foreign body of left eyelid and periocular area, initial encounter; C90.00 Multiple myeloma not having achieved remission; E78.00 Pure hypercholesterolemia, unspecified; M19.90 Unspecified osteoarthritis, unspecified site; Z20.822 Contact with and (suspected) exposure to COVID-19; Z79.899 Other long term (current) drug therapy; Z87.19 Personal history of other diseases of the digestive system; Z96.643 Presence of artificial hip joint, bilateral; Z23 Encounter for immunization
CPT/HCPCS: 0202U; 12013; 36415; 74177; 80053; 81001; 83690; 85014; 85018; 85025; 87150; 90471; 90715; 96374; 99285; A9270; G0378; J7120; Q9967; 81003; 87086

== ENCOUNTER 2021-04-18 13:59 | Outpatient (CLI) | payer MEDICARE, OTHER ==
[2021-04-18 14:11] LABS: BASOPHILS % (AUTO) 0.3 %; EOSINOPHILS # (AUTO) 0.2 10^3/uL (0.0-0.7); EOSINOPHILS % (AUTO) 3.5 %; HCT - HEMATOCRIT 32.3 % (42.0-52.0); HGB - HEMOGLOBIN 10.6 g/dL (14.0-18.0); LYMPHOCYTES % (AUTO) 16.7 %; MEAN CORPUSCULAR HEMOGLOBIN 33.1 pg (27.0-31.0); MEAN CORPUSCULAR HGB CONC 32.8 g/dL (32.0-36.0); MEAN CORPUSCULAR VOLUME 100.9 fL (80.0-94.0); MEAN PLATELET VOLUME 10.4 fL (7.4-11.4); MONOCYTES # (AUTO) 0.6 10^3/uL (0.0-1.0); MONOCYTES % (AUTO) 9.3 %; NEUTROPHILS # (AUTO) 4.2 10^3/uL (1.5-6.6); NEUTROPHILS % (AUTO) 69.9 %; PLT - PLATELET COUNT 114 10^3/uL (130-450); RED CELL DISTRIBUTION WIDTH 13.5 % (12.0-15.0); WHITE BLOOD COUNT 5.9 x10^3/uL (4.8-10.8)
== END 2021-04-18 14:00 | disposition home or self-care (01) ==
LOC: LAB 13:59
PROVIDERS: ATTEND Surgery
DX: D64.9 Anemia, unspecified (principal)
CPT/HCPCS: 36415; 85025

== ENCOUNTER 2021-11-13 10:36 | Outpatient (CLI) | payer MEDICARE, OTHER | END 2021-11-13 10:37 | disposition home or self-care (01) | LOC: DI 10:36 | PROVIDERS: ATTEND Physician Assistant Medical | DX: R01.1 Cardiac murmur, unspecified (principal); I35.0 Nonrheumatic aortic (valve) stenosis | CPT/HCPCS: 93306 ==

== ENCOUNTER 2022-10-08 14:35 | Outpatient (CLI) | payer MEDICARE, OTHER ==
[2022-10-08 15:11] LABS: CHOL/HDL RATIO 2.5 (<5.0); CHOLESTEROL 212 mg/dL; HDL CHOLESTEROL 84 mg/dL; LDL CHOLESTEROL,CALCULATED 92 mg/dL; LDL/HDL RATIO 1.1 (<3.6); TRIGLYCERIDES 179 mg/dL; VLDL CHOLESTEROL 36 mg/dL
[2022-10-08 18:45] LABS: ESTIMATED AVERAGE GLUCOSE 134 mg/dL (70-100); HEMOGLOBIN A1c% 6.3 % (4.27-6.07)
== END 2022-10-08 14:36 | disposition home or self-care (01) ==
LOC: LAB 14:35
PROVIDERS: ATTEND Physician Assistant Medical
DX: D51.9 Vitamin B12 deficiency anemia, unspecified (principal); E78.5 Hyperlipidemia, unspecified; R73.9 Hyperglycemia, unspecified
CPT/HCPCS: 36415; 80061; 82607; 83036; 83721